=== PATIENT | male | born 1965 | race African-American/Black ===

== ENCOUNTER 2023-08-10 15:40 | Inpatient (IN) | payer OTHER ==
[2023-08-10 17:04] LABS: BASO % 0.8 % (0-2.0); EOS % 0.4 % (0-4.5); HEMATOCRIT 44.5 % (35.4-49); HEMOGLOBIN 15.4 GM/dL (11.7-16.9); LYMPH % 18.7 % (8-40); MCH 28.3 pg (25.7-33.7); MCHC 34.7 g/dl (32.0-35.9); MEAN CELL VOLUME 81.5 fl (80-96); MEAN PLT VOLUME 9.6 fl (7.5-11.1); MONO % 10.5 % (3.8-10.2); NEUT % 69.6 % (42.8-82.8); PLATELET COUNT 286 10^3/uL (134-434); RBC 5.46 M/mm3 (4.00-5.60); RDW 15.6 % (11.9-15.9); WHITE BLOOD COUNT 8.4 K/mm3 (4.0-10.0)
[2023-08-10 17:10] LABS: INR 1.17 (0.83-1.09); PROTHROMBIN TIME (PATIENT) 13.6 SEC (9.7-13.0)
[2023-08-10 17:13] LABS: ACTIVATED PTT 29.7 SECONDS (25.2-36.5)
[2023-08-10 17:18] LABS: CHLORIDE 102 mmol/L (98-107); POTASSIUM 3.5 mmol/L (3.5-5.1); SODIUM 139 mmol/L (136-145)
[2023-08-10 17:19] LABS: CALCIUM 9.7 mg/dL (8.5-10.1)
[2023-08-10 17:20] LABS: ALBUMIN 3.5 g/dl (3.4-5.0); ANION GAP 12 mmol/L (4-13); CO2 25 mmol/L (21-32)
[2023-08-10 17:21] LABS: GLUCOSE,RANDOM 91 mg/dL (74-106)
[2023-08-10 17:23] LABS: SGOT/AST 19 U/L (15-37)
[2023-08-10 17:25] LABS: CHOLESTEROL 187 mg/dL (50-200); TOT PROT 7.5 g/dl (6.4-8.2)
[2023-08-10 17:26] LABS: BILIRUBIN,TOTAL 0.6 mg/dL (0.2-1); LDL CHOLESTEROL (ONLY SJRH) 107 mg/dL (5-100)
[2023-08-10 17:27] LABS: ALK PHOS 92 U/L (45-117)
[2023-08-10 17:29] LABS: SGPT/ALT 19 U/L (13-61)
[2023-08-10 18:04] LABS: CREATININE 9.7 mg/dL (0.55-1.3); HDL CHOLESTEROL 64 mg/dL (40-60)
[2023-08-10] MEDS: SODIUM CHLORIDE 0.9% 500 ML INFUS.BAG IV ONE (18:51)
[2023-08-10] MEDS ORDERED: LOSARTAN POTASSIUM 50 MG TABLET ONE (21:48)
[2023-08-10] MEDS: LOSARTAN POTASSIUM 50 MG TABLET PO ONE (21:51)
[2023-08-10] MEDS ORDERED: ATORVASTATIN CA 40 MG TABLET (FP) ONE (22:23)
[2023-08-10] MEDS ORDERED: HEPARIN NA (PORCINE) 5,000 UNITS/ML 1ML VIAL ONE (22:24)
[2023-08-10] MEDS: ATORVASTATIN CA 40 MG TABLET (FP) PO SCH (22:47)
[2023-08-10] MEDS: HEPARIN NA (PORCINE) 5,000 UNITS/ML 1ML VIAL SQ SCH (22:47)
[2023-08-10] MEDS: SODIUM CHLORIDE 1,000 ML IV SCH (22:47)
[2023-08-11 07:04] LABS: BASO % 0.8 % (0-2.0); EOS % 0.9 % (0-4.5); HEMATOCRIT 40.6 % (35.4-49); HEMOGLOBIN 13.8 GM/dL (11.7-16.9); LYMPH % 26.5 % (8-40); MCH 28.1 pg (25.7-33.7); MEAN CELL VOLUME 82.7 fl (80-96); MEAN PLT VOLUME 9.8 fl (7.5-11.1); MONO % 9.1 % (3.8-10.2); NEUT % 62.7 % (42.8-82.8); PLATELET COUNT 221 10^3/uL (134-434); RDW 15.5 % (11.9-15.9); WHITE BLOOD COUNT 6.7 K/mm3 (4.0-10.0)
[2023-08-11 07:15] LABS: CHLORIDE 105 mmol/L (98-107); POTASSIUM 3.3 mmol/L (3.5-5.1); SODIUM 143 mmol/L (136-145)
[2023-08-11 07:17] LABS: ALBUMIN 2.8 g/dl (3.4-5.0); ANION GAP 13 mmol/L (4-13); BLOOD UREA NITROGEN 97.4 mg/dL (7-18); CALCIUM 9.2 mg/dL (8.5-10.1); CO2 25 mmol/L (21-32); MAGNESIUM 2.5 mg/dL (1.8-2.4)
[2023-08-11 07:18] LABS: GLUCOSE,RANDOM 88 mg/dL (74-106)
[2023-08-11 07:20] LABS: PHOSPHOROUS 4.4 mg/dL (2.5-4.9); SGPT/ALT 18 U/L (13-61)
[2023-08-11 07:21] LABS: SGOT/AST 12 U/L (15-37)
[2023-08-11 07:22] LABS: BILIRUBIN,TOTAL 0.6 mg/dL (0.2-1); TOT PROT 6.5 g/dl (6.4-8.2)
[2023-08-11 07:23] LABS: ALK PHOS 74 U/L (45-117)
[2023-08-11 07:34] LABS: CREATININE 8.8 mg/dL (0.55-1.3)
[2023-08-11 09:03] LABS: EPI CELLS 14 /uL (0-25.1); HYALINE CASTS 1 /uL (0-3.1); PH,URINE 5.5 (5.0-8.0); URINE APPEARANCE CLEAR; URINE BACTERIA 58 /uL (0-1359); URINE BILIRUBIN NEGATIVE (NEGATIVE); URINE COLOR YELLOW; URINE GLUCOSE (UA) NEGATIVE (NEGATIVE); URINE KETONE NEGATIVE (NEGATIVE); URINE LEUK ESTERASE TRACE (NEGATIVE); URINE NITRITE NEGATIVE (NEGATIVE); URINE PROTEIN 2+ (NEGATIVE); URINE RBC 11 /uL (0-23.9); URINE UROBILINOGEN 0.2 mg/dL (0.2-1.0); URINE WBC 108 /uL (0-25.8)
[2023-08-11 09:18] LABS: METHADONE, UR NEGATIVE (NEGATIVE); PHENCYCLIDINE,URINE NEGATIVE (NEGATIVE); URINE BARBITURATES NEGATIVE (NEGATIVE); URINE BENZODIAZEPINES NEGATIVE (NEGATIVE)
[2023-08-11 09:19] LABS: COCAINE, UR NEGATIVE (NEGATIVE); OPIATES, URI NEGATIVE (NEGATIVE)
[2023-08-11 09:21] LABS: URINE AMPHETAMINES NEGATIVE (NEGATIVE)
[2023-08-11] MEDS ORDERED: PATIENT'S OWN MEDICATION (NON-FORMULARY) (Atenolol [Tenormin -] 100 MG Tablet) PO SCH (10:00)
[2023-08-11] MEDS ORDERED: CALCITRIOL 0.25 MCG CAPSULE (FP) PO SCH (10:00)
[2023-08-11] MEDS ORDERED: LOSARTAN POTASSIUM 50 MG TABLET PO SCH (10:00)
[2023-08-11] MEDS: amLODIPine BESYLATE 5 MG TABLET (FP) PO SCH (11:36)
[2023-08-11] MEDS: LACTATED RINGERS SOLUTION 1,000 ML/1,000 ML INFUS.BAG IV SCH (15:55)
[2023-08-11] MEDS: amLODIPine BESYLATE 5 MG TABLET (FP) PO ONE (16:37)
[2023-08-11] MEDS: POTASSIUM CHLORIDE ORAL LIQUID 20 MEQ/15 ML PO ONE (22:30)
[2023-08-12] MEDS: POTASSIUM CHLORIDE ORAL LIQUID 20 MEQ/15 ML PO ONE (00:32)
[2023-08-12] MEDS: amLODIPine BESYLATE 10 MG TABLET (FP) PO SCH (10:41)
[2023-08-12] MEDS: LABETALOL HCL 200 MG TABLET (FP) PO SCH (15:20)
[2023-08-12] MEDS ORDERED: LABETALOL HCL 200 MG TABLET (FP) PO SCH (22:00)
[2023-08-12] MEDS: LACTATED RINGERS SOLUTION 1,000 ML/1,000 ML INFUS.BAG IV SCH (23:00)
[2023-08-13 11:21] LABS: POTASSIUM 3.1 mmol/L (3.5-5.1)
[2023-08-13 11:23] LABS: CALCIUM 8.7 mg/dL (8.5-10.1)
[2023-08-13 11:24] LABS: ALBUMIN 2.7 g/dl (3.4-5.0); MAGNESIUM 2.3 mg/dL (1.8-2.4)
[2023-08-13 11:27] LABS: PHOSPHOROUS 2.7 mg/dL (2.5-4.9)
[2023-08-13 11:28] LABS: BILIRUBIN,TOTAL 0.4 mg/dL (0.2-1)
[2023-08-13] MEDS: POTASSIUM CHLORIDE ORAL LIQUID 20 MEQ/15 ML PO ONE (12:53)
[2023-08-14 07:43] LABS: BASO % 0.8 % (0-2.0); EOS % 3.9 % (0-4.5); HEMATOCRIT 36.3 % (35.4-49); HEMOGLOBIN 12.5 GM/dL (11.7-16.9); LYMPH % 27.2 % (8-40); MCH 28.3 pg (25.7-33.7); MCHC 34.4 g/dl (32.0-35.9); MEAN CELL VOLUME 82.1 fl (80-96); MEAN PLT VOLUME 9.7 fl (7.5-11.1); MONO % 8.3 % (3.8-10.2); NEUT % 59.8 % (42.8-82.8); PLATELET COUNT 205 10^3/uL (134-434); RBC 4.42 M/mm3 (4.00-5.60); WHITE BLOOD COUNT 5.2 K/mm3 (4.0-10.0)
[2023-08-14 07:48] LABS: POTASSIUM 3.9 mmol/L (3.5-5.1)
[2023-08-14 07:56] LABS: ALBUMIN 2.8 g/dl (3.4-5.0); BLOOD UREA NITROGEN 73.6 mg/dL (7-18); CALCIUM 8.7 mg/dL (8.5-10.1)
[2023-08-14 07:57] LABS: MAGNESIUM 2.1 mg/dL (1.8-2.4)
[2023-08-14 07:59] LABS: PHOSPHOROUS 2.4 mg/dL (2.5-4.9)
[2023-08-14 08:00] LABS: CREATININE 6.2 mg/dL (0.55-1.3)
[2023-08-14 08:01] LABS: BILIRUBIN,TOTAL 0.5 mg/dL (0.2-1); TOT PROT 6.2 g/dl (6.4-8.2)
[2023-08-14] MEDS: CLOPIDOGREL BISULFATE 75 MG TABLET (FP) PO SCH (21:25)
[2023-08-15 07:18] LABS: HEMATOCRIT 34.7 % (35.4-49); HEMOGLOBIN 11.7 GM/dL (11.7-16.9); LYMPH % 31.5 % (8-40); MCH 27.7 pg (25.7-33.7); MCHC 33.7 g/dl (32.0-35.9); MEAN CELL VOLUME 82.3 fl (80-96); MONO % 11.2 % (3.8-10.2); NEUT % 52.3 % (42.8-82.8); PLATELET COUNT 195 10^3/uL (134-434); RBC 4.21 M/mm3 (4.00-5.60); RDW 15.5 % (11.9-15.9); WHITE BLOOD COUNT 5.1 K/mm3 (4.0-10.0)
[2023-08-15 07:39] LABS: ALBUMIN 2.6 g/dl (3.4-5.0); CALCIUM 8.6 mg/dL (8.5-10.1)
[2023-08-15 07:40] LABS: BLOOD UREA NITROGEN 59.4 mg/dL (7-18); MAGNESIUM 1.9 mg/dL (1.8-2.4)
[2023-08-15 07:41] LABS: POTASSIUM 3.9 mmol/L (3.5-5.1)
[2023-08-15 07:42] LABS: CREATININE 5.6 mg/dL (0.55-1.3)
[2023-08-15 07:43] LABS: PHOSPHOROUS 2.3 mg/dL (2.5-4.9)
[2023-08-15 07:44] LABS: BILIRUBIN,TOTAL 0.5 mg/dL (0.2-1); TOT PROT 5.6 g/dl (6.4-8.2)
[2023-08-15] MEDS: ASPIRIN COATED 81 MG TABLET.EC PO SCH (10:12)
[2023-08-15 15:12] VITALS: BMI 26.4
[2023-08-16 07:31] LABS: POTASSIUM 4.1 mmol/L (3.5-5.1)
[2023-08-16 07:53] LABS: ALBUMIN 2.4 g/dl (3.4-5.0); BLOOD UREA NITROGEN 52.2 mg/dL (7-18); CALCIUM 8.9 mg/dL (8.5-10.1)
[2023-08-16 07:57] LABS: BILIRUBIN,TOTAL 0.4 mg/dL (0.2-1); CREATININE 5.3 mg/dL (0.55-1.3)
[2023-08-16 07:58] LABS: TOT PROT 5.4 g/dl (6.4-8.2)
[2023-08-16] MEDS: SODIUM CHLORIDE 500 ML IV STA (16:51)
[2023-08-17 06:51] LABS: BASO % 2.6 % (0-2.0); EOS % 5.6 % (0-4.5); HEMOGLOBIN 10.7 GM/dL (11.7-16.9); LYMPH % 32.4 % (8-40); MCHC 33.5 g/dl (32.0-35.9); MEAN CELL VOLUME 83.6 fl (80-96); MEAN PLT VOLUME 9.5 fl (7.5-11.1); NEUT % 47.4 % (42.8-82.8); PLATELET COUNT 198 10^3/uL (134-434); RBC 3.83 M/mm3 (4.00-5.60); RDW 15.8 % (11.9-15.9); WHITE BLOOD COUNT 5.3 K/mm3 (4.0-10.0)
[2023-08-17 07:11] LABS: POTASSIUM 4.3 mmol/L (3.5-5.1)
[2023-08-17 07:19] LABS: CALCIUM 8.6 mg/dL (8.5-10.1)
[2023-08-17 07:20] LABS: ALBUMIN 2.2 g/dl (3.4-5.0); BLOOD UREA NITROGEN 47.8 mg/dL (7-18); MAGNESIUM 1.9 mg/dL (1.8-2.4)
[2023-08-17 07:23] LABS: CREATININE 4.9 mg/dL (0.55-1.3); PHOSPHOROUS 2.3 mg/dL (2.5-4.9)
[2023-08-17 07:24] LABS: TOT PROT 4.9 g/dl (6.4-8.2)
[2023-08-17 07:29] LABS: BILIRUBIN,TOTAL 0.5 mg/dL (0.2-1)
[2023-08-17] MEDS: HEPARIN NA (PORCINE) 5,000 UNITS/ML 1ML VIAL SQ SCH (21:19)
[2023-08-17] MEDS: LABETALOL HCL 200 MG TABLET (FP) PO SCH (21:20)
[2023-08-17] MEDS: ATORVASTATIN CA 40 MG TABLET (FP) PO SCH (21:20)
[2023-08-17] MEDS: LACTATED RINGERS SOLUTION 1,000 ML/1,000 ML INFUS.BAG IV SCH (22:04)
[2023-08-18 07:40] LABS: HEMATOCRIT 31.5 % (35.4-49); HEMOGLOBIN 10.7 GM/dL (11.7-16.9); MCH 28.4 pg (25.7-33.7); MEAN CELL VOLUME 83.4 fl (80-96); MEAN PLT VOLUME 8.9 fl (7.5-11.1); PLATELET COUNT 188 10^3/uL (134-434); RBC 3.77 M/mm3 (4.00-5.60); RDW 16.2 % (11.9-15.9)
[2023-08-18 07:53] LABS: POTASSIUM 4.2 mmol/L (3.5-5.1)
[2023-08-18 07:54] LABS: CALCIUM 8.2 mg/dL (8.5-10.1)
[2023-08-18 07:55] LABS: BLOOD UREA NITROGEN 40.1 mg/dL (7-18)
[2023-08-18 08:24] LABS: ALBUMIN 2.2 g/dl (3.4-5.0)
[2023-08-18] MEDS: amLODIPine BESYLATE 10 MG TABLET (FP) PO SCH (11:00)
[2023-08-18] MEDS: CLOPIDOGREL BISULFATE 75 MG TABLET (FP) PO SCH (11:00)
[2023-08-18] MEDS: ASPIRIN COATED 81 MG TABLET.EC PO SCH (11:00)
[2023-08-18] MEDS: POLYETHYLENE GLYCOL (HEALTHYLAX) 3350 17 GM PACKET PO SCH (14:48)
[2023-08-19 07:50] LABS: HEMATOCRIT 31.1 % (35.4-49); HEMOGLOBIN 10.6 GM/dL (11.7-16.9); MCH 28.6 pg (25.7-33.7); MCHC 34.1 g/dl (32.0-35.9); MEAN PLT VOLUME 9.7 fl (7.5-11.1); PLATELET COUNT 194 10^3/uL (134-434); RDW 16.3 % (11.9-15.9); WHITE BLOOD COUNT 4.8 K/mm3 (4.0-10.0)
[2023-08-19 08:00] LABS: POTASSIUM 4.7 mmol/L (3.5-5.1)
[2023-08-19 08:08] LABS: ALBUMIN 2.2 g/dl (3.4-5.0); BLOOD UREA NITROGEN 38.4 mg/dL (7-18); MAGNESIUM 1.8 mg/dL (1.8-2.4)
[2023-08-19 08:09] LABS: CALCIUM 8.6 mg/dL (8.5-10.1)
[2023-08-19 08:12] LABS: CREATININE 4.8 mg/dL (0.55-1.3)
[2023-08-19 08:13] LABS: BILIRUBIN,TOTAL 0.5 mg/dL (0.2-1)
[2023-08-19] MEDS: SIMETHICONE 80 MG TAB.CHEW (FP) PO ONE (14:15)
[2023-08-20 08:03] LABS: HEMATOCRIT 30.1 % (35.4-49); MCH 28.1 pg (25.7-33.7); MCHC 33.2 g/dl (32.0-35.9); MEAN CELL VOLUME 84.6 fl (80-96); MEAN PLT VOLUME 9.6 fl (7.5-11.1); PLATELET COUNT 206 10^3/uL (134-434); RBC 3.56 M/mm3 (4.00-5.60); RDW 16.3 % (11.9-15.9); WHITE BLOOD COUNT 5.1 K/mm3 (4.0-10.0)
[2023-08-20 08:23] LABS: POTASSIUM 4.5 mmol/L (3.5-5.1)
[2023-08-20 08:30] LABS: CALCIUM 8.8 mg/dL (8.5-10.1)
[2023-08-20 08:31] LABS: ALBUMIN 2.2 g/dl (3.4-5.0); BLOOD UREA NITROGEN 37.1 mg/dL (7-18); MAGNESIUM 1.8 mg/dL (1.8-2.4)
[2023-08-20 08:34] LABS: CREATININE 4.9 mg/dL (0.55-1.3)
[2023-08-20 08:35] LABS: BILIRUBIN,TOTAL 0.4 mg/dL (0.2-1); TOT PROT 5.1 g/dl (6.4-8.2)
[2023-08-20] MEDS: MINERAL OIL/PET HY-PHL TOPICAL OINTMENT 454 GM JAR TP SCH (14:22)
[2023-08-21 09:44] LABS: HEMATOCRIT 30.8 % (35.4-49); HEMOGLOBIN 10.2 GM/dL (11.7-16.9); MCH 27.9 pg (25.7-33.7); MEAN CELL VOLUME 84.4 fl (80-96); MEAN PLT VOLUME 9.4 fl (7.5-11.1); PLATELET COUNT 217 10^3/uL (134-434); RBC 3.65 M/mm3 (4.00-5.60); WHITE BLOOD COUNT 5.3 K/mm3 (4.0-10.0)
[2023-08-21 09:51] LABS: POTASSIUM 4.8 mmol/L (3.5-5.1)
[2023-08-21 09:53] LABS: ALBUMIN 2.3 g/dl (3.4-5.0); BLOOD UREA NITROGEN 32.3 mg/dL (7-18); MAGNESIUM 1.9 mg/dL (1.8-2.4)
[2023-08-21 09:57] LABS: CREATININE 4.7 mg/dL (0.55-1.3)
[2023-08-21 09:58] LABS: BILIRUBIN,TOTAL 0.5 mg/dL (0.2-1); TOT PROT 5.4 g/dl (6.4-8.2)
[2023-08-21 12:52] LABS: INR 1.05 (0.83-1.09); PROTHROMBIN TIME (PATIENT) 12.2 SEC (9.7-13.0)
[2023-08-22 07:10] LABS: HEMATOCRIT 30.9 % (35.4-49); HEMOGLOBIN 10.3 GM/dL (11.7-16.9); MCH 28.4 pg (25.7-33.7); MCHC 33.4 g/dl (32.0-35.9); MEAN CELL VOLUME 84.9 fl (80-96); MEAN PLT VOLUME 9.2 fl (7.5-11.1); PLATELET COUNT 226 10^3/uL (134-434); RBC 3.64 M/mm3 (4.00-5.60); RDW 16.5 % (11.9-15.9)
[2023-08-22 07:31] LABS: POTASSIUM 4.8 mmol/L (3.5-5.1)
[2023-08-22 07:33] LABS: CALCIUM 8.9 mg/dL (8.5-10.1)
[2023-08-22 07:34] LABS: BLOOD UREA NITROGEN 29.8 mg/dL (7-18); MAGNESIUM 1.7 mg/dL (1.8-2.4)
[2023-08-22 07:37] LABS: CREATININE 4.8 mg/dL (0.55-1.3)
[2023-08-22] MEDS ORDERED: POVIDONE-IODINE OINTMENT 10% - 28.4 GM TUBE ONE ×2 (14:06→17:07)
[2023-08-22] MEDS ORDERED: LIDOCAINE HCL 1%, 10 MG/ML (20ML VIAL) ONE (14:07)
[2023-08-22] MEDS ORDERED: HEPARIN NA (PORCINE) 5,000 UNITS/ML 1ML VIAL ONE (14:07)
[2023-08-22] MEDS: chlorproMAZINE HCL 25 MG/1 ML AMP IM ONE (15:09)
[2023-08-22] MEDS ORDERED: ROPIVACAINE HCL 0.5% 30ML VIAL ONE (15:16)
[2023-08-22] MEDS: ASPIRIN 81 MG CHEWABLE TABLETS PO ONE (19:41)
[2023-08-22] MEDS: CLOPIDOGREL BISULFATE 75 MG TABLET (FP) PO ONE (19:42)
[2023-08-22] MEDS: ATORVASTATIN CA 80 MG TABLET (FP) PO SCH (22:24)
[2023-08-23 08:17] LABS: BASO % 1.9 % (0-2.0); EOS % 4.9 % (0-4.5); HEMATOCRIT 30.8 % (35.4-49); HEMOGLOBIN 10.2 GM/dL (11.7-16.9); LYMPH % 29.3 % (8-40); MCH 28.3 pg (25.7-33.7); MCHC 33.3 g/dl (32.0-35.9); MEAN PLT VOLUME 9.3 fl (7.5-11.1); MONO % 9.6 % (3.8-10.2); NEUT % 54.3 % (42.8-82.8); PLATELET COUNT 236 10^3/uL (134-434); POTASSIUM 4.8 mmol/L (3.5-5.1); RBC 3.62 M/mm3 (4.00-5.60); RDW 16.6 % (11.9-15.9); WHITE BLOOD COUNT 4.5 K/mm3 (4.0-10.0)
[2023-08-23 08:27] LABS: ALBUMIN 2.5 g/dl (3.4-5.0); CALCIUM 8.9 mg/dL (8.5-10.1)
[2023-08-23 08:30] LABS: CREATININE 5.1 mg/dL (0.55-1.3)
[2023-08-23 08:32] LABS: BILIRUBIN,TOTAL 0.5 mg/dL (0.2-1); TOT PROT 5.4 g/dl (6.4-8.2)
[2023-08-23] MEDS ORDERED: HEPARIN NA (PORCINE) 5,000 UNITS/ML 1ML VIAL ONE (13:02)
[2023-08-23] MEDS ORDERED: LIDOCAINE HCL 1%, 10 MG/ML (20ML VIAL) ONE (13:03)
[2023-08-23] MEDS ORDERED: PROMETHAZINE HCL 25 MG/1 ML VIAL IVPB PRN ×2 (13:50→17:14)
[2023-08-23] MEDS ORDERED: ONDANSETRON 4 MG/2 ML VIAL IVPUSH PRN ×2 (13:50→17:14)
[2023-08-23] MEDS ORDERED: SODIUM CHLORIDE 1,000 ML IV SCH (14:00)
[2023-08-23] MEDS ORDERED: POVIDONE-IODINE OINTMENT 10% - 28.4 GM TUBE ONE (14:05)
[2023-08-23] MEDS ORDERED: FENTANYL CITRATE/PF 50 MCG/ML VIAL ONE (14:59)
[2023-08-23] MEDS ORDERED: PROPOFOL 20 ML ONE (14:59)
[2023-08-23] MEDS ORDERED: LIDOCAINE HCL/PF 2% SDV 5ML VIAL ONE (15:00)
[2023-08-23] MEDS ORDERED: SODIUM CHLORIDE 0.9% P/F 10 ML VIAL IJ ONE (15:00)
[2023-08-23] MEDS ORDERED: ceFAZolin SODIUM 1 GM VIAL ONE (15:00)
[2023-08-23] MEDS ORDERED: MIDAZOLAM HCL 2 MG/2 ML SINGLE DOSE VIAL ONE (15:00)
[2023-08-23] MEDS ORDERED: METOCLOPRAMIDE HCL INJECTION 10 MG/2 ML VIAL ONE (15:51)
[2023-08-23] MEDS: LIDOCAINE HCL 1%, 10 MG/ML (20ML VIAL) NR ONE ×2 (16:07)
[2023-08-23] MEDS ORDERED: hydrALAZINE HCL 20 MG/ML VIAL ONE (16:50)
[2023-08-23] MEDS: POVIDONE-IODINE OINTMENT 10% - 28.4 GM TUBE TP ONE ×2 (16:53)
[2023-08-23] MEDS ORDERED: LACTATED RINGERS SOLUTION 1,000 ML/1,000 ML INFUS.BAG IV SCH (17:14)
[2023-08-23] MEDS: SODIUM CHLORIDE 1,000 ML IV SCH (17:20)
[2023-08-23] MEDS: ATORVASTATIN CA 80 MG TABLET (FP) PO SCH (22:21)
[2023-08-23] MEDS: MINERAL OIL/PET HY-PHL TOPICAL OINTMENT 454 GM JAR TP SCH (22:22)
[2023-08-23] MEDS: HEPARIN NA (PORCINE) 5,000 UNITS/ML 1ML VIAL SQ SCH (22:22)
[2023-08-23] MEDS: LABETALOL HCL 200 MG TABLET (FP) PO SCH (22:22)
[2023-08-24 07:09] LABS: BASO % 2.5 % (0-2.0); EOS % 4.6 % (0-4.5); HEMATOCRIT 31.1 % (35.4-49); HEMOGLOBIN 10.6 GM/dL (11.7-16.9); LYMPH % 28.6 % (8-40); MCH 28.8 pg (25.7-33.7); MCHC 33.9 g/dl (32.0-35.9); MEAN CELL VOLUME 84.8 fl (80-96); MEAN PLT VOLUME 8.9 fl (7.5-11.1); MONO % 8.7 % (3.8-10.2); NEUT % 55.6 % (42.8-82.8); PLATELET COUNT 242 10^3/uL (134-434); RBC 3.67 M/mm3 (4.00-5.60); RDW 16.5 % (11.9-15.9); WHITE BLOOD COUNT 5.5 K/mm3 (4.0-10.0)
[2023-08-24 07:15] LABS: POTASSIUM 4.7 mmol/L (3.5-5.1)
[2023-08-24 07:23] LABS: ALBUMIN 2.4 g/dl (3.4-5.0); BLOOD UREA NITROGEN 36.9 mg/dL (7-18)
[2023-08-24 07:25] LABS: BILIRUBIN,TOTAL 0.4 mg/dL (0.2-1); CALCIUM 8.6 mg/dL (8.5-10.1); TOT PROT 5.7 g/dl (6.4-8.2)
[2023-08-24] MEDS: amLODIPine BESYLATE 10 MG TABLET (FP) PO SCH (10:44)
[2023-08-24] MEDS: CLOPIDOGREL BISULFATE 75 MG TABLET (FP) PO SCH (10:44)
[2023-08-24] MEDS: POLYETHYLENE GLYCOL (HEALTHYLAX) 3350 17 GM PACKET PO SCH (10:44)
[2023-08-24] MEDS: ASPIRIN COATED 81 MG TABLET.EC PO SCH (10:44)
[2023-08-25 09:04] LABS: BASO % 1.2 % (0-2.0); EOS % 5.1 % (0-4.5); HEMATOCRIT 28.4 % (35.4-49); HEMOGLOBIN 9.7 GM/dL (11.7-16.9); LYMPH % 32.8 % (8-40); MCH 28.7 pg (25.7-33.7); MEAN CELL VOLUME 84.4 fl (80-96); MEAN PLT VOLUME 9.1 fl (7.5-11.1); MONO % 9.1 % (3.8-10.2); NEUT % 51.8 % (42.8-82.8); PLATELET COUNT 221 10^3/uL (134-434); RBC 3.36 M/mm3 (4.00-5.60); RDW 16.7 % (11.9-15.9); WHITE BLOOD COUNT 4.5 K/mm3 (4.0-10.0)
[2023-08-25 09:06] LABS: POTASSIUM 4.3 mmol/L (3.5-5.1)
[2023-08-25 09:08] LABS: CALCIUM 8.9 mg/dL (8.5-10.1)
[2023-08-25 09:09] LABS: BLOOD UREA NITROGEN 34.8 mg/dL (7-18)
[2023-08-25 09:13] LABS: CREATININE 5.2 mg/dL (0.55-1.3)
[2023-08-26 07:53] LABS: BASO % 1.8 % (0-2.0); EOS % 5.4 % (0-4.5); HEMATOCRIT 28.9 % (35.4-49); HEMOGLOBIN 9.6 GM/dL (11.7-16.9); LYMPH % 34.4 % (8-40); MCH 28.2 pg (25.7-33.7); MCHC 33.2 g/dl (32.0-35.9); MEAN PLT VOLUME 8.7 fl (7.5-11.1); MONO % 9.3 % (3.8-10.2); NEUT % 49.1 % (42.8-82.8); PLATELET COUNT 240 10^3/uL (134-434); RDW 16.2 % (11.9-15.9); WHITE BLOOD COUNT 4.4 K/mm3 (4.0-10.0)
[2023-08-26 08:06] LABS: POTASSIUM 4.1 mmol/L (3.5-5.1)
[2023-08-26 08:08] LABS: BLOOD UREA NITROGEN 34.4 mg/dL (7-18); CALCIUM 8.7 mg/dL (8.5-10.1)
[2023-08-26 08:12] LABS: CREATININE 5.2 mg/dL (0.55-1.3)
[2023-08-27 08:09] LABS: HEMATOCRIT 30.4 % (35.4-49); HEMOGLOBIN 10.1 GM/dL (11.7-16.9); MCH 28.5 pg (25.7-33.7); MCHC 33.2 g/dl (32.0-35.9); MEAN CELL VOLUME 85.7 fl (80-96); PLATELET COUNT 224 10^3/uL (134-434); RBC 3.55 M/mm3 (4.00-5.60); RDW 16.7 % (11.9-15.9); WHITE BLOOD COUNT 4.2 K/mm3 (4.0-10.0)
[2023-08-27 08:21] LABS: POTASSIUM 4.4 mmol/L (3.5-5.1)
[2023-08-27 08:27] LABS: CREATININE 5.2 mg/dL (0.55-1.3)
[2023-08-28 08:24] LABS: BASO % 1.8 % (0-2.0); EOS % 6.3 % (0-4.5); HEMATOCRIT 30.3 % (35.4-49); LYMPH % 30.7 % (8-40); MCH 28.3 pg (25.7-33.7); MEAN CELL VOLUME 85.8 fl (80-96); MONO % 9.4 % (3.8-10.2); NEUT % 51.8 % (42.8-82.8); PLATELET COUNT 227 10^3/uL (134-434); RBC 3.53 M/mm3 (4.00-5.60); RDW 16.8 % (11.9-15.9); WHITE BLOOD COUNT 4.4 K/mm3 (4.0-10.0)
[2023-08-28 08:30] LABS: POTASSIUM 4.5 mmol/L (3.5-5.1)
[2023-08-28 08:35] LABS: BLOOD UREA NITROGEN 36.3 mg/dL (7-18); CALCIUM 8.9 mg/dL (8.5-10.1)
[2023-08-28 08:38] LABS: CREATININE 5.2 mg/dL (0.55-1.3)
[2023-08-29 12:51] LABS: BASO % 1.3 % (0-2.0); EOS % 5.9 % (0-4.5); HEMATOCRIT 30.2 % (35.4-49); HEMOGLOBIN 9.8 GM/dL (11.7-16.9); LYMPH % 32.6 % (8-40); MCHC 32.6 g/dl (32.0-35.9); MEAN PLT VOLUME 8.9 fl (7.5-11.1); MONO % 11.7 % (3.8-10.2); NEUT % 48.5 % (42.8-82.8); PLATELET COUNT 245 10^3/uL (134-434); RBC 3.51 M/mm3 (4.00-5.60); RDW 16.8 % (11.9-15.9); WHITE BLOOD COUNT 4.4 K/mm3 (4.0-10.0)
[2023-08-29 13:17] LABS: POTASSIUM 4.7 mmol/L (3.5-5.1)
[2023-08-29 13:19] LABS: ALBUMIN 2.5 g/dl (3.4-5.0); BLOOD UREA NITROGEN 39.4 mg/dL (7-18); CALCIUM 8.6 mg/dL (8.5-10.1)
[2023-08-29 13:20] LABS: MAGNESIUM 2.3 mg/dL (1.8-2.4)
[2023-08-29 13:23] LABS: CREATININE 5.1 mg/dL (0.55-1.3)
[2023-08-29 13:25] LABS: BILIRUBIN,TOTAL 0.3 mg/dL (0.2-1); TOT PROT 5.8 g/dl (6.4-8.2)
[2023-08-30 08:50] LABS: BASO % 1.3 % (0-2.0); EOS % 5.1 % (0-4.5); HEMATOCRIT 30.8 % (35.4-49); HEMOGLOBIN 10.2 GM/dL (11.7-16.9); LYMPH % 36.4 % (8-40); MCH 28.4 pg (25.7-33.7); MCHC 33.2 g/dl (32.0-35.9); MEAN CELL VOLUME 85.6 fl (80-96); MEAN PLT VOLUME 8.6 fl (7.5-11.1); MONO % 10.9 % (3.8-10.2); NEUT % 46.3 % (42.8-82.8); PLATELET COUNT 237 10^3/uL (134-434); RBC 3.59 M/mm3 (4.00-5.60); WHITE BLOOD COUNT 4.8 K/mm3 (4.0-10.0)
[2023-08-30 09:09] LABS: POTASSIUM 4.6 mmol/L (3.5-5.1)
[2023-08-30 09:14] LABS: BLOOD UREA NITROGEN 39.1 mg/dL (7-18); CALCIUM 9.1 mg/dL (8.5-10.1)
[2023-08-30 09:21] LABS: CREATININE 5.2 mg/dL (0.55-1.3)
[2023-09-01 16:06] LABS: HEMATOCRIT 30.1 % (35.4-49); HEMOGLOBIN 10.2 GM/dL (11.7-16.9); MCH 28.8 pg (25.7-33.7); MCHC 33.8 g/dl (32.0-35.9); MEAN CELL VOLUME 85.2 fl (80-96); MEAN PLT VOLUME 8.5 fl (7.5-11.1); PLATELET COUNT 263 10^3/uL (134-434); RBC 3.53 M/mm3 (4.00-5.60); RDW 17.1 % (11.9-15.9); WHITE BLOOD COUNT 5.3 K/mm3 (4.0-10.0)
[2023-09-01] MEDS: SODIUM CHLORIDE 1,000 ML IV SCH (16:26)
[2023-09-01 16:30] LABS: POTASSIUM 4.9 mmol/L (3.5-5.1)
[2023-09-01 16:33] LABS: CALCIUM 8.8 mg/dL (8.5-10.1)
[2023-09-01 16:34] LABS: ALBUMIN 2.6 g/dl (3.4-5.0); MAGNESIUM 2.2 mg/dL (1.8-2.4)
[2023-09-01 16:37] LABS: CREATININE 5.2 mg/dL (0.55-1.3)
[2023-09-01 16:39] LABS: BILIRUBIN,TOTAL 0.3 mg/dL (0.2-1); TOT PROT 6.1 g/dl (6.4-8.2)
[2023-09-02 08:37] LABS: POTASSIUM 4.8 mmol/L (3.5-5.1)
[2023-09-02 08:38] LABS: BLOOD UREA NITROGEN 42.8 mg/dL (7-18); CALCIUM 9.1 mg/dL (8.5-10.1)
[2023-09-02 08:42] LABS: CREATININE 4.9 mg/dL (0.55-1.3)
[2023-09-03 08:46] LABS: POTASSIUM 4.7 mmol/L (3.5-5.1)
[2023-09-03 08:54] LABS: ALBUMIN 2.4 g/dl (3.4-5.0); CALCIUM 9.2 mg/dL (8.5-10.1)
[2023-09-03 08:55] LABS: BLOOD UREA NITROGEN 41.9 mg/dL (7-18)
[2023-09-03 08:57] LABS: CREATININE 4.8 mg/dL (0.55-1.3)
[2023-09-03 08:59] LABS: BILIRUBIN,TOTAL 0.4 mg/dL (0.2-1); TOT PROT 5.9 g/dl (6.4-8.2)
[2023-09-04 08:44] LABS: POTASSIUM 4.6 mmol/L (3.5-5.1)
[2023-09-04 09:02] LABS: BLOOD UREA NITROGEN 45.2 mg/dL (7-18); CALCIUM 9.4 mg/dL (8.5-10.1)
[2023-09-04 09:03] LABS: ALBUMIN 2.7 g/dl (3.4-5.0)
[2023-09-04 09:05] LABS: BILIRUBIN,TOTAL 0.3 mg/dL (0.2-1); TOT PROT 5.9 g/dl (6.4-8.2)
[2023-09-04 14:40] VITALS: RESP 17
[2023-09-04 23:10] VITALS: BP 139/82; PULSE 74; TEMP 99
== END 2023-09-04 23:00 | DRG 951 ==
LOC: JER 15:40 → JERBED 20:08 → J4W 08-11 00:23 → J7W 08-17 09:24
PROVIDERS: ADMIT Internal Medicine
PROC: 03180ZD Bypass Left Brachial Artery to Upper Arm Vein, Open Approach (ICD-10-PCS; principal; 2023-08-23 15:00)
DX: I63.442 Cerebral infarction due to embolism of left cerebellar artery (principal); I63.549 Cerebral infarction due to unspecified occlusion or stenosis of unspecified cerebellar artery; R29.704 NIHSS score 4; I24.89 Other forms of acute ischemic heart disease; E78.5 Hyperlipidemia, unspecified; I12.0 Hypertensive chronic kidney disease with stage 5 chronic kidney disease or end stage renal disease; N17.9 Acute kidney failure, unspecified; E86.0 Dehydration; G93.41 Metabolic encephalopathy; E87.6 Hypokalemia; D63.1 Anemia in chronic kidney disease; I95.1 Orthostatic hypotension; R29.810 Facial weakness; R64 Cachexia; N18.5 Chronic kidney disease, stage 5; W01.0XXA Fall on same level from slipping, tripping and stumbling without subsequent striking against object, initial encounter; Y93.89 Activity, other specified; Y92.230 Patient room in hospital as the place of occurrence of the external cause; Y99.8 Other external cause status; I73.9 Peripheral vascular disease, unspecified; Z68.26 Body mass index [BMI] 26.0-26.9, adult; I34.0 Nonrheumatic mitral (valve) insufficiency
CPT/HCPCS: 36415; 70450-TC; 70551-TC; 72131-TC; 76775-TC; 80048; 80053; 80061; 80307; 81003; 82040; 82140; 82550; 82553; 82728; 82962; 83036; 83540; 83550; 83605; 83735; 83880; 84100; 84439; 84443; 84484; 85025; 85027; 85045; 85610; 85730; 86850; 86900; 86901; 93005; 93010; 93306-TC; 93880-TC; 93886; 94760; 97116-GP; 97163-GP; 99285-25; J1644